=== PATIENT | male | born 1975 | race Asian ===

== ENCOUNTER → 2018-04-26 09:47 | Outpatient (CLI) | payer OTHER, SELFPAY ==
[2018-04-26 10:27] LABS: Add Manual Diff / Slide Review NO; Basophils Percent Auto 0.5 % (0-2); Eosinophils Percent Auto 5.3 % (2-4); Hematocrit 44.5 % (41-53); Hemoglobin 15.2 g/dL (13.5-17.5); Lymphocytes Percent Auto 34.5 % (25-40); Mean Corpuscular HGB Conc 34.1 % (30-36); Mean Corpuscular Volume 85.1 fL (80-100); Monocytes Percent Auto 5.4 % (3-14); Neutrophils Absolute Auto 3300 /uL (3000-5900); Neutrophils Percent Auto 54.3 % (50-75); Platelet Count 195 X10^3/uL (150-400); Red Blood Cell Count 5.22 X10^6/uL (4.5-5.9); Red Cell Distribution Width 13.6 % (11.6-14.8); White Blood Cell Count 6.2 X10^3/uL (4.5-11.0)
[2018-04-26 10:48] LABS: Alanine Aminotransferase 35 IU/L (21-72); Albumin 4.6 g/dL (3.5-5.0); Albumin Globulin Ratio 1.4 (1.0-2.8); Alkaline Phosphatase 71 U/L (38-126); Aspartate Aminotransferase 34 IU/L (17-59); BUN Creatinine Ratio 12.5 (6-22); Bilirubin Total 0.8 mg/dL (0.2-1.3); Blood Urea Nitrogen 15 mg/dL (9-20); Calcium 9.6 mg/dL (8.4-10.2); Carbon Dioxide 28 mmol/L (22-32); Chloride 102 mmol/L (98-107); Estimated Glomerular Filt Rate > 60.0 mL/min (>60); Globulin 3.2 g/dL (1.7-4.1); Glucose 126 mg/dL (70-100); HEMOLYSIS < 15 (0-50); Potassium 4.4 mmol/L (3.4-5.1); Sodium 141 mmol/L (137-145); Total Protein 7.8 g/dL (6.3-8.2)
[2018-04-26 10:49] LABS: Erythrocyte Sedimentation Rate 4 MM/HR (0-15)
[2018-04-26 10:50] LABS: C-Reactive Protein Quant < 0.5 mg/dL (<1.0)
[2018-04-26 11:20] LABS: Thyroid Stimulating Hormone 2.41 uIU/mL (0.47-4.68)
== END ==
PROVIDERS: PCP Family Medicine; Visit Provider Internal Medicine
DX: M25.532 Pain in left wrist (principal); M25.579 Pain in unspecified ankle and joints of unspecified foot; M79.646 Pain in unspecified finger(s)
CPT/HCPCS: 36415; 80053; 84443; 85025; 85651; 86140

== ENCOUNTER → 2018-04-26 10:00 | Outpatient (CLI) | payer OTHER, SELFPAY ==
--- NOTE | 2018-04-26 10:02 | DI.RAD.S_ITS ---
PROCEDURE: XR FINGER LT MIN 2V INDICATIONS: thumb pain Left TECHNIQUE: AP hand, 2 views of the left thumb acquired. COMPARISON: None. FINDINGS: Bones: No fractures or dislocations. No suspicious bony lesions. Joint spaces appear maintained. Soft tissues: No suspicious soft tissue calcifications. IMPRESSION: Normal thumb Dictated by: Dino Larson M.D. on 04/26/2018 at 10:31 Approved by: Dino Larson M.D. on 04/26/2018 at 10:32
--- NOTE | 2018-04-26 10:02 | DI.RAD.S_ITS ---
PROCEDURE: XR ANKLE LT MIN 3V INDICATIONS: PAIN IN ANKLE,WRIST,FINGERS TECHNIQUE: 3 views of the ankle were acquired. COMPARISON: None. FINDINGS: Bones: No fractures or dislocations. Ankle mortise is normally aligned. No suspicious bony lesions. Soft tissues: No tibiotalar joint effusion. Achilles tendon appears normal. IMPRESSION: Normal ankle Dictated by: Dino Larson M.D. on 04/26/2018 at 10:32 Approved by: Dino Larson M.D. on 04/26/2018 at 10:33
--- NOTE | 2018-04-26 10:02 | DI.RAD.S_ITS ---
PROCEDURE: XR WRIST LT MIN 3V INDICATIONS: left wrist pain TECHNIQUE: 3 views of the wrist were acquired. COMPARISON: None. FINDINGS: Bones: No fractures or dislocations. No suspicious bony lesions. Scaphoid view: Not requested Soft tissues: No suspicious soft tissue calcifications. IMPRESSION: Normal wrist Dictated by: Dino Larson M.D. on 04/26/2018 at 10:30 Approved by: Dino Larson M.D. on 04/26/2018 at 10:31
== END ==
PROVIDERS: PCP Family Medicine; Visit Provider Internal Medicine
DX: M25.532 Pain in left wrist (principal); M79.645 Pain in left finger(s); M25.572 Pain in left ankle and joints of left foot
CPT/HCPCS: 36415; 73110; 73140; 73610; 80053; 84443; 85025; 85651; 86140

== ENCOUNTER → 2018-06-07 09:37 | Outpatient (CLI) | payer OTHER, SELFPAY ==
[2018-06-07 10:31] LABS: Hemoglobin A1C% w Est Avg Glu 5.5 % (4.0-6.0)
[2018-06-07 10:37] LABS: Cholesterol 211 mg/dL (140-199); HDL Cholesterol 42 mg/dL (40-60); LDL Cholesterol Calculated 143 mg/dL (<100); Triglycerides 129 mg/dL (35-150)
[2018-06-07 11:09] LABS: Prostate Specific Antigen Scrn 0.787 ng/mL (0.1-4.0)
== END ==
PROVIDERS: Internal Medicine; Family Provider Family Medicine; PCP Family Medicine; Visit Provider Family Medicine
DX: E11.9 Type 2 diabetes mellitus without complications (principal); E78.5 Hyperlipidemia, unspecified; Z12.5 Encounter for screening for malignant neoplasm of prostate
CPT/HCPCS: 80061; 83036; G0103

== ENCOUNTER → 2018-09-03 09:26 | Outpatient (CLI) | payer OTHER, SELFPAY ==
[2018-09-03 10:44] LABS: Cholesterol 150 mg/dL (140-199); HDL Cholesterol 48 mg/dL (40-60); LDL Cholesterol Calculated 83 mg/dL (<100); Triglycerides 93 mg/dL (35-150)
== END ==
PROVIDERS: Family Provider Family Medicine; PCP Family Medicine; Visit Provider Family Medicine
DX: E78.5 Hyperlipidemia, unspecified (principal)
CPT/HCPCS: 80061

== ENCOUNTER → 2018-12-27 09:42 | Outpatient (CLI) | payer OTHER, SELFPAY ==
--- NOTE | 2018-12-27 09:43 | DI.RAD.S_ITS ---
PROCEDURE: XR FOOT RT MIN 3V INDICATIONS: foot pain TECHNIQUE: Pre-views of the foot were acquired. COMPARISON: None. FINDINGS: Bones: No fractures or dislocations. No suspicious bony lesions. Soft tissues: No tibiotalar joint effusion. Achilles tendon appears normal. IMPRESSION: No trauma found, source of foot pain is not seen. Dictated by: Dennis Fairbanks M.D. on 12/27/2018 at 10:22 Approved by: Dennis Fairbanks M.D. on 12/27/2018 at 10:23
== END ==
PROVIDERS: Family Provider Family Medicine; PCP Family Medicine; Visit Provider Family Medicine
DX: M79.671 Pain in right foot (principal)
CPT/HCPCS: 73630

== ENCOUNTER → 2019-02-28 10:32 | Outpatient (CLI) | payer OTHER, SELFPAY ==
--- NOTE | 2019-02-28 10:34 | DI.RAD.S_ITS ---
PROCEDURE: XR ELBOW RT MIN 3V INDICATIONS: pain TECHNIQUE: 3 views of the elbow were acquired. COMPARISON: None. FINDINGS: Bones: No fractures or dislocations. No suspicious bony lesions. There is calcified in the olecranon. Soft tissues: No elbow joint effusion. No suspicious soft tissue calcifications. IMPRESSION: 1. No fracture or dislocation. 2. Osteophyte in the olecranon may be secondary to enthesopathy. Dictated by: Cheri Torres M.D. on 02/28/2019 at 12:18 Approved by: Cheri Torres M.D. on 02/28/2019 at 12:20
[2019-02-28 12:02] LABS: Cholesterol 196 mg/dL (140-199); HDL Cholesterol 45 mg/dL (40-60); LDL Cholesterol Calculated 129 mg/dL (<100); Triglycerides 112 mg/dL (35-150)
== END ==
PROVIDERS: Family Provider Family Medicine; PCP Family Medicine; Visit Provider Family Medicine
DX: M77.11 Lateral epicondylitis, right elbow (principal); E78.5 Hyperlipidemia, unspecified; M25.721 Osteophyte, right elbow
CPT/HCPCS: 36415; 73080; 80061

== ENCOUNTER 2019-05-05 10:58 | Outpatient (RCR) | payer OTHER, SELFPAY ==
--- NOTE | 2019-05-05 15:46 | PT.OIE ---
Current Diagnoses Pain in right elbow (05/05/19) Achilles tendinitis, unspecified leg (05/05/19) Posterior tibial tendinitis, unspecified leg (05/05/19) Lateral epicondylitis, right elbow (05/05/19) Past Medical History (Last Updated 04/25/18 @ 08:46 by Cornelia Vail) Chicken pox (Resolved) Past Surgical History (Last Updated 04/25/18 @ 08:46 by Cornelia Vail) No history of previous surgery (Resolved 01/2015) Provider Visit Care Team Role Provider Type Olu Chiang MD Attending Provider Physician Primary Care Provider Specialty: Family Practice Address: [address] [place] [address], [employer] Email: [email or web address] Physical Therapy Initial Evaluation PT-OP-A Visit Information Start: 04/21/19 18:37 Freq: Status: Active Protocol: Document 05/05/19 11:15 AMB (Rec: 05/08/19 07:46 AMB [id number]) Out-Patient Physical Therapy Visit Information Visit Information Visit Type Initial Evaluation Visit Start Time 11:15 Visit Stop Time 12:03 Total Visit Minutes 48 Visit Number 1 PT-OP-B Current Condition Start: 04/21/19 18:37 Freq: Status: Active Protocol: Document 05/05/19 11:15 AMB (Rec: 05/08/19 12:06 AMB [email or web address]) Current Condition History of Current Condition Onset Date 6 months ago Current Complaints right elbow pain; R>L ankle pain History of Current Condition The patient denies any specific activity that brought on his elbow or ankle pain, although he first noticed the elbow pain when lifting groceries. He is most concerned about the elbow/ forearm pain. It was pretty bad when it first started, got a little better, then he went to [place] and was lifting luggage and that increased the pain. 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 The ankle pain started out as both ankles, but recently the right one has been worse. It is intermittent in nature. Walking makes it worse, and it tends to get worse in the evenings. 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 Prior Treatments and Tests X-ray of foot and elbow are negative (elbow X-ray does show an osteophyte in the olecranon). Prior Functional Status Baseline Function- ADL's Independent Baseline Function- Mobility Independent Current Functional Impairments (Reported) Functional Limitations- ADL's difficulty gripping/ lifting due to elbow pain Functional Limitations- Mobility/Gait limits some walking due to ankle pain Personal Factors Other Personal Factors That May Effect tendonitis at multiple joints Therapy/Recovery PT-OP-C Subjective Start: 04/21/19 18:37 Freq: Status: Active Protocol: Document 05/05/19 11:15 AMB (Rec: 05/08/19 12:06 AMB [email or web address]) Patient Questionnaires Lower Extremity Functional Scale LEFS Score 72 LEFS Impairment 1 to 19% Impaired (Score 63-79 ) Quick Dash- Upper Extremity Quick Dash UE Score 38 Quick Dash UE Impairment 20 to 39% Impaired (Score 20- 39) OP-PT Pain Assessment Location Right Ankle Pain Location Details lateral ankle into anterior and medial ankle R>L Intensity 4 Right Elbow Pain Location Details lateral epicondyle into forearm Intensity 5 Scale Used Numeric (1 - 10) PT-OP-J Posture/Palpation/Skin Start: 04/21/19 18:37 Freq: Status: Active Protocol: Document 05/05/19 11:15 AMB (Rec: 05/08/19 12:46 AMB [email or web address]) Palpation Assessment Location Two Palpation Location right posterior tibilalis tendon Palpation Findings Tenderness One Palpation Location lateral epicondyle Palpation Findings Tenderness PT-OP-L Special Tests Start: 04/21/19 18:37 Freq: Status: Active Protocol: Document 05/05/19 11:15 AMB (Rec: 05/08/19 12:06 AMB [email or web address]) Special Tests Elbow Special Tests Lateral Epicondylitis Flexed Test Results positive Lateral Epicondylitis Extended Test Results positive PT-OP-M Strength Start: 04/21/19 18:37 Freq: Status: Active Protocol: Document 05/05/19 11:15 AMB (Rec: 05/08/19 12:06 AMB [email or web address]) Wrist Strength Wrist Manual Muscle Testing Right Flexion (C7) 4+ Good+ Extension (C6) 4- Good- Ulnar Deviation 4+ Good+ Radial Deviation 4+ Good+ Left Flexion (C7) 5 Normal Extension (C6) 5 Normal Ulnar Deviation 5 Normal Radial Deviation 5 Normal Hand Quality Supervisor/Pinch Strength Hand Dominance Hand Dominance Right Hand Strength Right Quality Supervisor (lbs) 57 Left Quality Supervisor (lbs) 65 Ankle/Foot Strength Ankle and Foot Manual Muscle Testing Right Dorsiflexion (L4) 5 Normal Plantarflexion (S1) 5 Normal Inversion 4 Good Eversion (S1) 4- Good- Comments pain over lateral ankle with eversion Left Dorsiflexion (L4) 5 Normal Plantarflexion (S1) 5 Normal Inversion 4 Good Eversion (S1) 4 Good Comments pain over medial ankle with eversion inversion strength testing PT-OP-Q Treatments Start: 04/21/19 18:37 Freq: Status: Active Protocol: Document 05/05/19 11:15 AMB (Rec: 05/08/19 13:02 AMB [email or web address]) Therapeutic Exercises Sitting Exercises 2 Sitting Exercise Name ankle inversion and eversion Side bilateral Resistance #2 tband Reps/Minutes 1x10 ea 1 Sitting Exercise Name wrist extensor stretch Side right Reps/Minutes 30x2 PT-OP-T Assessment and Plan Start: 04/21/19 18:37 Freq: Status: Active Protocol: Document 05/05/19 11:15 AMB (Rec: 05/08/19 13:02 AMB [email or web address]) Physical Therapy Assessment Rehab Potential Rehabilitation Potential Good Evaluation Complexity Number of Personal Factors/Comorbidities 1-2 Number of Body Systems Impaired 3 Clinical Presentation at Evaluation Evolving Impairments Impairments Functional Activities Pain Soft Tissue Mobility Strength Goals Two Impairment ankle pain Short Term Goal (STG) Pete will increase his ankle strength in all planes to 5/5 without increasing his pain. 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 LTG Duration 8 weeks One Impairment UE strength Short Term Goal (STG) Pete will increase his average tissue technologist strength on the right to 70 pounds without an increase in elbow pain. STG Duration 4 weeks Applied Computer Science Professor Goal (LTG) Pete will increase his UE strength so he can lift a 10# grocery back from the floor to counter height without arm pain. LTG Duration 8 weeks Assessment Summary Assessment Pete attends physical therapy with symptoms consistent with right lateral epicondylitis and bilateral ankle pain worse on the right that presented at evaluation as having a component of posterior tibialis weakness and pain. 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 He will benefit from further education in avoiding repetitive strain to decrease his inflammatory response and then appropriate strengthening to avoid further flare ups. Physical Therapy Plan Frequency and Duration Frequency of Treatment 2x/Week Duration of Treatment 8 weeks Plan of Care Start Date 05/05/19 Plan of Care End Date 06/30/19 Therapeutic Interventions Therapeutic Interventions Aquatic Therapy Gait Training Joint Mobilizations Manual Therapy Neuromuscular Re-education Self-Care/Home Management Therapeutic Activities Therapeutic Exercises Modalities Cold Pack/Ice Massage Electric Stimulation Iontophoresis Ultrasound Other Therapeutic Interventions Iontophoresis with dexamethasone Next Visit Focus/Plan Next Note Type Treatment Note Next Visit Plan Progress HEP as tolerated, modalities to reduce inflammatory response, education in ergonomics of workstation
--- NOTE | 2019-05-05 15:49 | PT.OPPOC ---
Current Diagnoses Pain in right elbow (05/05/19) Achilles tendinitis, unspecified leg (05/05/19) Posterior tibial tendinitis, unspecified leg (05/05/19) Lateral epicondylitis, right elbow (05/05/19) Provider Visit Care Team Role Provider Type Olu Chiang MD Attending Provider Physician Primary Care Provider Specialty: Family Practice Address: [address] [place] [address], [facility] Email: [email or web address] Plan Of Care PT-OP-T Assessment and Plan Start: 04/21/19 18:37 Freq: Status: Active Protocol: Document 05/05/19 11:15 AMB (Rec: 05/08/19 13:02 AMB [email or web address]) Physical Therapy Assessment Rehab Potential Rehabilitation Potential Good Evaluation Complexity Number of Personal Factors/Comorbidities 1-2 Number of Body Systems Impaired 3 Clinical Presentation at Evaluation Evolving Impairments Impairments Functional Activities Pain Soft Tissue Mobility Strength Goals Two Impairment ankle pain Short Term Goal (STG) Pete will increase his ankle strength in all planes to 5/5 without increasing his pain. 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 LTG Duration 8 weeks One Impairment UE strength Short Term Goal (STG) Pete will increase his average carding supervisor strength on the right to 70 pounds without an increase in elbow pain. STG Duration 4 weeks Longterm Goal (LTG) Pete will increase his UE strength so he can lift a 10# grocery back from the floor to counter height without arm pain. LTG Duration 8 weeks Assessment Summary Assessment Pete attends physical therapy with symptoms consistent with right lateral epicondylitis and bilateral ankle pain worse on the right that presented at evaluation as having a component of posterior tibialis weakness and pain. 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 He will benefit from further education in avoiding repetetive strain to decrease his inflammatory response and then appropriate strengthening to avoid further flare ups. Physical Therapy Plan Frequency and Duration Frequency of Treatment 2x/Week Duration of Treatment 8 weeks Plan of Care Start Date 05/05/19 Plan of Care End Date 06/30/19 Therapeutic Interventions Therapeutic Interventions Aquatic Therapy Gait Training Joint Mobilizations Manual Therapy Neuromuscular Re-education Self-Care/Home Management Therapeutic Activities Therapeutic Exercises Modalities Cold Pack/Ice Massage Electric Stimulation Iontophoresis Ultrasound Other Therapeutic Interventions Iontophoresis with dexamethasone Next Visit Focus/Plan Next Note Type Treatment Note Next Visit Plan Progress HEP as tolerated, modalities to reduce inflammatory response, education in ergonomics of workstation Plan of Care Dates Plan of Care Start Date 05/05/19 Plan of Care End Date 06/30/19 Please Sign and Return: I have reviewed this Plan of Care and certify that the skilled therapy services above are required to meet the patient?s needs. Physician Signature Date Printed Name and Credentials Clinical Instructor Signature Printed Name and Credentials
--- NOTE | 2019-07-21 09:15 | PT.OPDS ---
Current Diagnoses Pain in right elbow (05/05/19) Achilles tendinitis, unspecified leg (05/05/19) Posterior tibial tendinitis, unspecified leg (05/05/19) Lateral epicondylitis, right elbow (05/05/19) Visit Care Team Role Provider Type Olu Chiang MD Attending Provider Physician Primary Care Provider Specialty: [facility] Address: [address] [place] [address], [facility] Email: [email or web address] Visit Number Visit Number 1 Discharge Summary PT-OP-B Current Condition Start: 04/21/19 18:37 Freq: Status: Active Protocol: Document 05/05/19 11:15 AMB (Rec: 05/08/19 12:06 AMB [email or web address]) Current Condition History of Current Condition Onset Date 6 months ago Current Complaints right elbow pain; R>L ankle pain History of Current Condition The patient denies any specific activity that brought on his elbow or ankle pain, although he first noticed the elbow pain when lifting groceries. He is most concerned about the elbow/ forearm pain. It was pretty bad when it first started, got a little better, then he went to [place] and was lifting luggage and that increased the pain. 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 The ankle pain started out as both ankles, but recently the right one has been worse. It is intermittent in nature. Walking makes it worse, and it tends to get worse in the evenings. 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 Prior Treatments and Tests X-ray of foot and elbow are negative (elbow X-ray does show an osteophyte in the olecranon). Prior Functional Status Baseline Function- ADL's Independent Baseline Function- Mobility Independent Current Functional Impairments (Reported) Functional Limitations- ADL's difficulty gripping/ lifting due to elbow pain Functional Limitations- Mobility/Gait limits some walking due to ankle pain Personal Factors Other Personal Factors That May Effect tendonitis at multiple joints Therapy/Recovery PT-OP-C Subjective Start: 04/21/19 18:37 Freq: Status: Active Protocol: Document 05/05/19 11:15 AMB (Rec: 05/08/19 12:06 AMB [email or web address]) Patient Questionnaires Lower Extremity Functional Scale LEFS Score 72 LEFS Impairment 1 to 19% Impaired (Score 63-79 ) Quick Dash- Upper Extremity Quick Dash UE Score 38 Quick Dash UE Impairment 20 to 39% Impaired (Score 20- 39) OP-PT Pain Assessment Location Right Ankle Pain Location Details lateral ankle into anterior and medial ankle R>L Intensity 4 Right Elbow Pain Location Details lateral epiocondyle into forearm Intensity 5 Scale Used Numeric (1 - 10) PT-OP-J Posture/Palpation/Skin Start: 04/21/19 18:37 Freq: Status: Active Protocol: Document 05/05/19 11:15 AMB (Rec: 05/08/19 12:46 AMB [email or web address]) Palpation Assessment Location Two Palpation Location right posterior tibilalis tendon Palpation Findings Tenderness One Palpation Location lateral epicondyle Palpation Findings Tenderness PT-OP-L Special Tests Start: 04/21/19 18:37 Freq: Status: Active Protocol: Document 05/05/19 11:15 AMB (Rec: 05/08/19 12:06 AMB [email or web address]) Special Tests Elbow Special Tests Lateral Epicondylitis Flexed Test Results positive Lateral Epicondylitis Extended Test Results positive PT-OP-M Strength Start: 04/21/19 18:37 Freq: Status: Active Protocol: Document 05/05/19 11:15 AMB (Rec: 05/08/19 12:06 AMB [email or web address]) Wrist Strength Wrist Manual Muscle Testing Right Flexion (C7) 4+ Good+ Extension (C6) 4- Good- Ulnar Deviation 4+ Good+ Radial Deviation 4+ Good+ Left Flexion (C7) 5 Normal Extension (C6) 5 Normal Ulnar Deviation 5 Normal Radial Deviation 5 Normal Hand Certified Composites Technician/Pinch Strength Hand Dominance Hand Dominance Right Hand Strength Right Certified Composites Technician (lbs) 57 Left Certified Composites Technician (lbs) 65 Ankle/Foot Strength Ankle and Foot Manual Muscle Testing Right Dorsiflexion (L4) 5 Normal Plantarflexion (S1) 5 Normal Inversion 4 Good Eversion (S1) 4- Good- Comments pain over lateral ankle with eversion Left Dorsiflexion (L4) 5 Normal Plantarflexion (S1) 5 Normal Inversion 4 Good Eversion (S1) 4 Good Comments pain over medial ankle with eversion inversion strength testing PT-OP-T Assessment and Plan Start: 04/21/19 18:37 Freq: Status: Active Protocol: Document 07/21/19 09:14 AMB (Rec: 07/21/19 09:15 AMB [email or web address]) Physical Therapy Assessment Assessment Summary Assessment Macho canceled his follow up appointments and never called back to reschedule. He was not seen after his initial evaluation, therefore he is discharged at this time. Physical Therapy Plan Discharge Physical Therapy Discharge Reasons No Longer Attending PT
== END 2019-07-27 12:48 ==
LOC: PHYS 10:58
PROVIDERS: PCP Family Medicine; Visit Provider Family Medicine
DX: M25.521 Pain in right elbow (principal); M76.60 Achilles tendinitis, unspecified leg; M77.11 Lateral epicondylitis, right elbow; M76.829 Posterior tibial tendinitis, unspecified leg
CPT/HCPCS: 97162

== ENCOUNTER → 2019-07-07 12:45 | Outpatient (CLI) | payer OTHER, SELFPAY ==
--- NOTE | 2019-07-07 12:47 | DI.MRI.S_ITS ---
PROCEDURE: MR ANKLE LT WO CON INDICATIONS: unstable ankle TECHNIQUE: Noncontrast sagittal T1 spin echo and T2 fast spin echo with fat saturation, axial proton density fast spin echo and T2 fast spin echo with fat saturation, coronal T1 spin echo and T2 fast spin echo with fat saturation through the ankle/hindfoot. COMPARISON: [facility], MR, MR ANKLE RT WO CON, 07/07/2019, 13:01. FINDINGS: Image quality: Mildly motion degraded Bones and joints: No bone marrow contusions or fractures. Ununited accessory navicular. No hindfoot coalitions. No osteochondral injuries of the talar dome. No pathologic joint effusions. Medial structures: The posterior tibialis, flexor digitorum longus, and flexor hallucis longus tendons are intact. Minimal fluid surrounding the posterior tibialis tendon raise the possibility of low-grade tenosynovitis. The posterior tibial neurovascular bundle appears normal within the tarsal tunnel, without extrinsic mass effect. The deep layer (anterior and posterior tibiotalar ligaments) and superficial layer (tibionavicular, tibiospring, and tibiocalcaneal ligaments) of the deltoid ligament appear normal. The spring ligament components (superomedial calcaneonavicular, medioplantar oblique calcaneonavicular, and inferoplantar longitudinal ligaments) are intact. Lateral structures: The anterior talofibular, calcaneofibular, and posterior talofibular ligaments appear intact, although there is mild T2 hyperintense appearance of the posterior talofibular ligament. More superiorly, the anterior and posterior tibiofibular ligaments appear intact, as is the intermalleolar ligament. The tibiofibular syndesmosis is normal in width at 2 mm or less. The peroneus longus and brevis tendons demonstrate normal location and morphology. Adjacent bony peroneal tubercle and retrotrochlear prominence are normal in size. The sinus tarsi demonstrates normal fatty signal, without edema, fibrosis, or cyst formation. Visualized sinus tarsi components (cervical ligament, interosseous talocalcaneal ligament, roots of the inferior extensor retinaculum) appear normal. The calcaneonavicular and calcaneocuboid components of the bifurcate ligament appear intact. The dorsal calcaneocuboid ligament appears intact. Anterior structures: The tibialis anterior, extensor hallucis longus, and extensor digitorum longus tendons appear intact. The dorsal talonavicular ligament appears intact. Posterior and plantar structures: Achilles tendon is intact. Medial and lateral bands of the plantar fascia are of normal thickness. No abductor digiti quinti muscle atrophy to suggest De La Cruz neuropathy. IMPRESSION: Minimal posterior tibialis tenosynovitis of unclear clinical significance. Questionable low-grade sprain of the posterior talofibular ligament. Elsewhere, no internal derangement. Dictated by: Jaycob Soares M.D. on 07/07/2019 at 16:14 Approved by: Jaycob Soares M.D. on 07/07/2019 at 16:23
--- NOTE | 2019-07-07 12:47 | DI.MRI.S_ITS ---
PROCEDURE: MR ELBOW RT WO CON INDICATIONS: lateral epicondyle TECHNIQUE: Noncontrast coronal proton density fast spin echo and T2 fast spin echo with fat saturation, axial and sagittal T1 spin echo and T2 fast spin echo with fat saturation through the elbow. COMPARISON: None. FINDINGS: Image quality: Severely motion degraded on multiple attempts. Lateral structures: The lateral ulnar collateral ligament and radial collateral ligament both appear intact. The overlying common extensor tendon is not well evaluated due to motion artifact however the coronal pulse sequence, there appears to be some thickening and T2 hyperintensity. Medial structures: The ulnar collateral ligament appears intact. The overlying common flexor tendon is not well-visualized although appears grossly intact. The ulnar nerve appears normal in size and signal within the cubital tunnel. Anterior structures: The biceps and brachialis tendons both appear intact as they insert onto the proximal radius and ulna, respectively. No bicipitoradial bursal fluid. The median and radial neurovascular bundles appear normal; no focal muscle atrophy to suggest nerve impingement. Posterior structures: The conjoint triceps tendon from the long and lateral heads appears intact. The medial head of the triceps tendon also appears normal, with direct muscle insertion onto the olecranon. No olecranon bursal fluid. Bone and cartilage: No bone marrow contusions or fractures. No osteochondral injuries. IMPRESSION: Severely motion degraded examination however on some pulse sequences, there appears to be changes suggestive of lateral epicondylitis syndrome. Please correlate clinically. Dictated by: Jaycob Soares M.D. on 07/07/2019 at 16:58 Approved by: Jaycob Soares M.D. on 07/07/2019 at 17:04
--- NOTE | 2019-07-07 12:47 | DI.MRI.S_ITS ---
PROCEDURE: MR ANKLE RT WO CON INDICATIONS: unstable ankle TECHNIQUE: Noncontrast sagittal T1 spin echo and T2 fast spin echo with fat saturation, axial proton density fast spin echo and T2 fast spin echo with fat saturation, coronal T1 spin echo and T2 fast spin echo with fat saturation through the ankle/hindfoot. COMPARISON: None. FINDINGS: Image quality: Degraded by motion artifact. Bones and joints: No bone marrow contusions or fractures. Incidental unfused accessory navicular. No hindfoot coalitions. No osteochondral injuries of the talar dome. No pathologic joint effusions. Medial structures: The posterior tibialis, flexor digitorum longus, and flexor hallucis longus tendons are intact. The posterior tibial neurovascular bundle appears normal within the tarsal tunnel, without extrinsic mass effect. The deep layer (anterior and posterior tibiotalar ligaments) and superficial layer (tibionavicular, tibiospring, and tibiocalcaneal ligaments) of the deltoid ligament appear normal. The spring ligament components (superomedial calcaneonavicular, medioplantar oblique calcaneonavicular, and inferoplantar longitudinal ligaments) are intact. Lateral structures: The anterior talofibular, calcaneofibular, and posterior talofibular ligaments appear intact. More superiorly, the anterior and posterior tibiofibular ligaments appear intact, as is the intermalleolar ligament. The tibiofibular syndesmosis is normal in width at 2 mm or less. The peroneus longus and brevis tendons demonstrate normal location and morphology. Adjacent bony peroneal tubercle and retrotrochlear prominence are normal in size. The sinus tarsi demonstrates normal fatty signal, without edema, fibrosis, or cyst formation. Visualized sinus tarsi components (cervical ligament, interosseous talocalcaneal ligament, roots of the inferior extensor retinaculum) appear normal. The calcaneonavicular and calcaneocuboid components of the bifurcate ligament appear intact. The dorsal calcaneocuboid ligament appears intact. Anterior structures: The tibialis anterior, extensor hallucis longus, and extensor digitorum longus tendons appear intact. The dorsal talonavicular ligament appears intact. Posterior and plantar structures: Achilles tendon is intact. Mild retro-calcaneal bursal fluid. Medial and lateral bands of the plantar fascia are of normal thickness. No abductor digiti quinti muscle atrophy to suggest De La Cruz neuropathy. IMPRESSION: Mild posterior tibialis tenosynovitis. Mild retrocalcaneal bursal fluid. Elsewhere, no internal derangement Dictated by: Jaycob Soares M.D. on 07/07/2019 at 14:39 Approved by: Jaycob Soares M.D. on 07/07/2019 at 14:45
== END ==
PROVIDERS: PCP Family Medicine; Visit Provider Family Medicine
DX: M25.372 Other instability, left ankle (principal); M25.371 Other instability, right ankle; M65.871 Other synovitis and tenosynovitis, right ankle and foot; M77.11 Lateral epicondylitis, right elbow
CPT/HCPCS: 73221; 73721

== ENCOUNTER → 2020-04-12 12:31 | Outpatient (CLI) | payer OTHER, SELFPAY ==
--- NOTE | 2020-04-12 12:35 | DI.RAD.S_ITS ---
PROCEDURE: XR KNEE RT 3V INDICATIONS: Pain TECHNIQUE: 3 views of the knee were acquired. COMPARISON: None. FINDINGS: Bones: No fractures or dislocations. No suspicious bony lesions. Soft tissues: No joint effusion. No suspicious soft tissue calcifications. IMPRESSION: No trauma found. Minimal thinning of the joint interspaces on the frontal view at the medial and lateral compartments. Slight osteoarthritis is suspected. Dictated by: Dennis Fairbanks M.D. on 04/12/2020 at 14:19 Approved by: Dennis Fairbanks M.D. on 04/12/2020 at 14:20
--- NOTE | 2020-04-12 12:35 | DI.RAD.S_ITS ---
PROCEDURE: XR KNEE LT 3V INDICATIONS: Pain TECHNIQUE: 3 views of the knee were acquired. COMPARISON: None. FINDINGS: Bones: No fractures or dislocations. No suspicious bony lesions. Soft tissues: No joint effusion. No suspicious soft tissue calcifications. IMPRESSION: Minimal if any thinning of the joint interspaces at the medial and lateral compartments on the frontal view. A definite source of knee pain is not found. Dictated by: Dennis Fairbanks M.D. on 04/12/2020 at 14:20 Approved by: Dennis Fairbanks M.D. on 04/12/2020 at 14:21
[2020-04-12 14:24] LABS: Add Manual Diff / Slide Review NO; Basophils Absolute Auto 0 /uL (0-100); Basophils Percent Auto 0.6 % (0-2); Eosinophils Absolute Auto 300 /uL (0-450); Eosinophils Percent Auto 4.7 % (2-4); Hematocrit 44.8 % (41-53); Lymphocytes Absolute Auto 2200 /uL (1100-4500); Lymphocytes Percent Auto 32.4 % (25-40); Mean Corpuscular HGB Conc 33.5 % (30-36); Mean Corpuscular Hemoglobin 28.6 PG (26-34); Mean Corpuscular Volume 85.6 fL (80-100); Monocytes Absolute Auto 400 /uL (0-900); Monocytes Percent Auto 6.4 % (3-14); Neutrophils Absolute Auto 3800 /uL (1500-7000); Neutrophils Percent Auto 55.9 % (50-75); Platelet Count 203 X10^3/uL (150-400); Red Blood Cell Count 5.24 X10^6/uL (4.5-5.9); Red Cell Distribution Width 12.8 % (11.6-14.8); White Blood Cell Count 6.8 X10^3/uL (4.5-11.0)
[2020-04-12 14:36] LABS: Alanine Aminotransferase 27 IU/L (<50); Albumin Globulin Ratio 1.7 (1.0-2.8); Alkaline Phosphatase 71 U/L (38-126); Aspartate Aminotransferase 36 IU/L (17-59); BUN Creatinine Ratio 10.4 (6-22); Bilirubin Total 0.5 mg/dL (0.2-1.3); Blood Urea Nitrogen 11 mg/dL (9-20); Calcium 10.2 mg/dL (8.4-10.2); Carbon Dioxide 29 mmol/L (22-32); Chloride 103 mmol/L (98-107); Cholesterol 206 mg/dL (140-199); Estimated Glomerular Filt Rate > 60.0 mL/min (>60); Glucose 91 mg/dL (70-100); HDL Cholesterol 47 mg/dL (40-60); HEMOLYSIS < 15 (0-50); LDL Cholesterol Calculated 125 mg/dL (<100); Potassium 4.8 mmol/L (3.4-5.1); Sodium 139 mmol/L (137-145); Triglycerides 171 mg/dL (35-150)
[2020-04-12 15:05] LABS: Prostate Specific Antigen Scrn 0.766 ng/mL (0.1-4.0)
== END ==
PROVIDERS: PCP Family Medicine; Referring Provider Family Medicine; Visit Provider Family Medicine
DX: M22.2X1 Patellofemoral disorders, right knee (principal); M22.2X2 Patellofemoral disorders, left knee; E78.5 Hyperlipidemia, unspecified
CPT/HCPCS: 36415; 73562; 80053; 80061; 85025; G0103

== ENCOUNTER 2020-05-22 17:06 | Emergency (ER) | payer OTHER, SELFPAY ==
[2020-05-22] VITALS (11 sets, daily range): BP systolic 113–145; BP diastolic 64–86; PULSE 57–64; RESP 15–20; O2SAT 99–100
[2020-05-22 17:41] LABS: Prothrombin Time 11.5 SECONDS (10.1-12.7)
--- NOTE | 2020-05-22 17:43 | DI.RAD.S_ITS ---
PROCEDURE: XR CHEST 2V INDICATIONS: knot in chest TECHNIQUE: 2 views of the chest were acquired. COMPARISON: None. FINDINGS: Surgical changes and devices: None. Lungs and pleura: Lungs are clear. No pleural effusions or pneumothorax. Mediastinum: Mediastinal contours are normal. Heart size is normal. Bones and chest wall: No suspicious bony abnormalities. Soft tissues appear unremarkable. IMPRESSION: No acute cardiopulmonary findings. Dictated by: Marissa Obrien M.D. on 05/22/2020 at 17:55 Approved by: Marissa Obrien M.D. on 05/22/2020 at 17:55
[2020-05-22 17:44] LABS: PTT Partial Thromboplastin Tim 36 SECONDS (26.4-36.2)
[2020-05-22 17:46] LABS: Alanine Aminotransferase 43 IU/L (<50); Albumin 4.6 g/dL (3.5-5.0); Albumin Globulin Ratio 1.5 (1.0-2.8); Alkaline Phosphatase 77 U/L (38-126); Aspartate Aminotransferase 37 IU/L (17-59); BUN Creatinine Ratio 13.3 (6-22); Bilirubin Total 0.6 mg/dL (0.2-1.3); Blood Urea Nitrogen 14 mg/dL (9-20); Calcium 9.5 mg/dL (8.4-10.2); Carbon Dioxide 21 mmol/L (22-32); Chloride 106 mmol/L (98-107); Creatine Kinase 190 U/L (55-170); Estimated Glomerular Filt Rate > 60.0 mL/min (>60); Globulin 3.1 g/dL (1.7-4.1); Glucose 94 mg/dL (70-100); HEMOLYSIS 17 (0-50); Lipase 173 U/L (23-300); Potassium 4.2 mmol/L (3.4-5.1); Sodium 137 mmol/L (137-145); Total Protein 7.7 g/dL (6.3-8.2)
[2020-05-22 17:48] LABS: Add Manual Diff / Slide Review NO; Basophils Absolute Auto 0 /uL (0-100); Basophils Percent Auto 0.6 % (0-2); Eosinophils Absolute Auto 300 /uL (0-450); Eosinophils Percent Auto 3.7 % (2-4); Hematocrit 42.7 % (41-53); Hemoglobin 14.7 g/dL (13.5-17.5); Lymphocytes Absolute Auto 2400 /uL (1100-4500); Lymphocytes Percent Auto 31.1 % (25-40); Mean Corpuscular HGB Conc 34.4 % (30-36); Mean Corpuscular Hemoglobin 29.1 PG (26-34); Mean Corpuscular Volume 84.6 fL (80-100); Monocytes Absolute Auto 500 /uL (0-900); Monocytes Percent Auto 6.5 % (3-14); Neutrophils Absolute Auto 4500 /uL (1500-7000); Neutrophils Percent Auto 58.1 % (50-75); Platelet Count 192 X10^3/uL (150-400); Red Blood Cell Count 5.04 X10^6/uL (4.5-5.9); Red Cell Distribution Width 12.8 % (11.6-14.8); White Blood Cell Count 7.8 X10^3/uL (4.5-11.0)
[2020-05-22 17:57] LABS: Troponin I < 0.012 ng/mL (0.01-0.034)
[2020-05-22 18:01] LABS: CKMB % Relative Index 0.3 % (1.5-5.0)
--- NOTE | 2020-05-22 18:12 | ED_ITS ---
HPI - Chest Pain General Chief Complaint: Chest Pain Stated Complaint: states painful knot in middle of chest Time Seen by Provider: 05/22/20 18:09 Source: patient Mode of arrival: Ambulatory Limitations: no limitations History of Present Illness HPI narrative: 44M nonsmoker with history of elevated cholesterol presents with family and the chief complaint of episodes of epigastric pain since yesterday. There is no obvious pattern. He states it radiates to his back. He denies dizziness, weakness, lightheadedness, fever, chills, recent travel. He denies exertional symptoms. He states he feels a lump in his epigastrum which is what has him concerned. He denies injury or obvious history of the same. He has been under stress and is purchasing a new hotel in [place], [place] soon. He denies long distance travel, change in diet or exercise. He denies fever, runny nose, sneezing, sore throat, or cough. Related Data Previous Rx's Medication Instructions Recorded atorvastatin 20 mg tablet See Rx Instructions .ROUTE 04/16/20 .COMPLEX #90 tab meloxicam 15 mg tablet 15 mg PO DAILY #30 tab 04/17/20 pantoprazole [Protonix] 40 mg PO DAILY #30 tab 05/22/20 Allergies Allergy/AdvReac Type Severity Reaction Status Date / Time No Known Drug Allergies Allergy Unverified 02/28/19 10:12 Review of Systems Constitutional Constitutional: Denies chills, Denies fatigue, Denies fever(s), Denies frequent falls, Denies lethargy and Denies weakness Eyes Eyes: Denies change in vision, Denies eye discharge, Denies irritation and Denies loss of vision ENT Ears, Nose, Mouth, and Throat: Denies change in voice, Denies dizziness, Denies neck pain, Denies sore throat and Denies throat swelling Cardiovascular Cardiovascular: Denies chest pain, Denies irregular heart rhythm, Denies lightheadedness, Denies palpitations, Denies dyspnea, Denies dyspnea on exertion and Denies orthopnea Respiratory Respiratory: Denies cough, Denies dyspnea, Denies dyspnea on exertion and Denies wheezing Gastrointestinal Gastrointestinal: Reports abdominal pain, Denies change in bowel habits, Denies diarrhea, Denies nausea and Denies vomiting Musculoskeletal Musculoskeletal: Denies neck pain and Denies numbness Integumentary/Breasts Skin/Breast: Denies pruritus, Denies erythema, Denies rash and Denies wounds Neurologic Neurologic: Denies behavioral changes, Denies confusion, Denies dizziness, Denies frequent falls, Denies loss of vision, Denies numbness and Denies weakness Psychiatric Psychiatric: Denies anxiety, Denies behavioral changes, Denies confusion, Denies depression, Denies homicidal ideation and Denies suicidal ideation Endocrine Endocrine: Denies fatigue, Denies flushing and Denies palpitations Hematologic/Lymphatic Hematologic/Lymphatic: Denies easy bruising Allergic/Immunologic Allergic/Immunologic: Denies urticaria, Denies throat swelling and Denies wheezing Patient History Medical History Chicken pox (Resolved) Surgical History No history of previous surgery (Resolved 01/2015) Family History Father Age: 82 Hypertension Diabetes mellitus Grandmother No problems noted. Grandfather No problems noted. Mother Epilepsy Grandfather No problems noted. Grandmother No problems noted. Brother No problems noted. Social History Smoking Status: Never smoker Smoking Status: Never smoker alcohol intake frequency: holidays/special occasions only Substance Use Type: marijuana Exam Narrative Exam Narrative: GENERAL: [44] year old patient appears stated age. Well- nourished, well-developed patient, in mild distress. HEAD: Atraumatic. Normocephalic. EYES: Pupils equal round and reactive. Extraocular motions intact. No scleral icterus. No injection or drainage. ENT: Nose without bleeding, purulent drainage. Throat without erythema, tonsillar hypertrophy or exudate. Airway patent. NECK: Trachea midline. Non tender CARDIOVASCULAR: Regular rate and rhythm without murmurs, gallops, or rubs. RESPIRATORY: Clear to auscultation. Breath sounds equal bilaterally. No wheezes, rales, or rhonchi. GASTROINTESTINAL: Abdomen soft, mild tenderness in epigastrum and RUQ, nondistended. Concerning lump is patient xiphoid process, no pain on palpation, nor edema/erythema EXTREMITIES: No edema or joint tenderness. BACK: Nontender without deformity or crepitance. No flank tenderness. NEURO: AOx3. SKIN: No rash or erythema of visible areas Initial Vital Signs Initial Vital Signs: Vital Signs Pulse Rate 60 05/22/20 17:15 Respiratory Rate 18 05/22/20 17:15 Blood Pressure 144/84 H 05/22/20 17:15 Pulse Oximetry 100 05/22/20 17:15 Course Course Course Narrative: significant improvement with GI cocktail / protonix. Orders Ordered: ED Orders 05/22/20 17:13 EKG-12 Lead Stat 05/22/20 17:25 Complete Blood Count AUTO DIFF Stat Comprehensive Metabolic Panel Stat Lipase Stat Partial Thromboplastin Time Stat Prothrombin Time INR Stat Troponin & CK Cardiac Panel Stat 05/22/20 17:43 XR chest 2V Stat 05/22/20 18:28 US abdomen limited Stat Discontinued Medications Al Hydrox/Mg Hydrox/Simethicone 20 ml/ Lidocaine HCl 15 ml 0 ml PO NOW ONE Stop: 05/22/20 19:39 Last Admin: 05/22/20 19:51 Dose: 35 ml Documented by: LEONID Pantoprazole Sodium (Protonix) 40 mg IV NOW ONE Stop: 05/22/20 19:39 Last Admin: 05/22/20 19:52 Dose: 40 mg Documented by: LEONID Vital Signs Vital signs: Vital Signs - 8 hr 05/22/20 17:15 05/22/20 17:50 05/22/20 17:52 Pulse Rate 60 60 62 Respiratory Rate 18 Blood Pressure 144/84 H 132/86 Pulse Oximetry 100 100 99 05/22/20 18:00 05/22/20 18:30 05/22/20 19:00 Pulse Rate 62 64 57 L Respiratory Rate 16 19 18 Blood Pressure 118/76 127/83 113/64 Pulse Oximetry 100 99 100 05/22/20 19:30 05/22/20 19:31 05/22/20 20:00 Pulse Rate 61 60 Respiratory Rate 16 18 Blood Pressure 120/76 Pulse Oximetry 100 100 100 05/22/20 20:01 05/22/20 20:31 Pulse Rate 60 63 Respiratory Rate 15 20 Blood Pressure 138/81 145/86 H Pulse Oximetry 100 100 MDM - Chest Pain Lab Data Result diagrams: 05/22/20 17:25 05/22/20 17:25 Labs: Lab Results 09/11/0905/22/20 05/22/20 Range/Units 17:25 17:25 17:25 WBC 7.8 (4.5-11.0) X10^3/uL RBC 5.04 (4.5-5.9) X10^6/uL Hgb 14.7 (13.5-17.5) g/dL Hct 42.7 (41-53) % MCV 84.6 (80-100) fL MCH 29.1 (26-34) PG MCHC 34.4 (30-36) % RDW 12.8 (11.6-14.8) % Plt Count 192 (150-400) X10^3/uL Neut % (Auto) 58.1 (50-75) % Lymph % (Auto) 31.1 (25-40) % [place] % (Auto) 6.5 (3-14) % Eos % (Auto) 3.7 (2-4) % Baso % (Auto) 0.6 (0-2) % Neut # (Auto) 4500 (2972-9520) /uL Lymph # (Auto) 2400 (7961-7566) /uL [place] # (Auto) 500 (0-900) /uL Eos # (Auto) 300 (0-450) /uL Baso # (Auto) 0 (0-100) /uL PT 11.5 (10.1-12.7) SECONDS INR 1.0 (0.9-1.3) APTT 36 (26.4-36.2) SECONDS Sodium 137 (137-145) mmol/L Potassium 4.2 (3.4-5.1) mmol/L Chloride 106 (98-107) mmol/L Carbon Dioxide 21 L (22-32) mmol/L BUN 14 (9-20) mg/dL Creatinine 1.05 (0.66-1.25) mg/dL Estimated GFR > 60.0 (>60) mL/min BUN/Creatinine Ratio 13.3 (6-22) Glucose 94 (70-100) mg/dL Calcium 9.5 (8.4-10.2) mg/dL Total Bilirubin 0.6 (0.2-1.3) mg/dL AST 37 (17-59) IU/L ALT 43 (<50) IU/L Alkaline Phosphatase 77 (38-126) U/L Total Creatine Kinase 190 H (55-170) U/L CK-MB (CK-2) 0.50 (<2.37) ng/mL CK-MB (CK-2) Rel Index 0.3 L (1.5-5.0) % Troponin I < 0.012 (0.01-0.034) ng/mL Total Protein 7.7 (6.3-8.2) g/dL Albumin 4.6 (3.5-5.0) g/dL Globulin 3.1 (1.7-4.1) g/dL Albumin/Globulin Ratio 1.5 (1.0-2.8) Lipase 173 (23-300) U/L Imaging Data US - abdomen: Radiologist's Impression: MaldonadoPete [address] [address] Ultrasound Report Signed Patient: Pete Maldonado RMR#: [id number] : 1975Acct:[id number] Age/Sex: 44 / MDate of Service: 05/22/20 Loc: ED Accession Number: [id number] Procedure: US abdomen limited Ordering Provider: Robel Garcia D.O. PROCEDURE: US ABDOMEN LIMITED INDICATIONS: RUQ PAIN TECHNIQUE: Real-time scanning was performed of the abdominal and retroperitoneal organs, with image documentation. COMPARISON: None. FINDINGS: Liver: Liver is normal in size and homogeneous in echotexture. Gallbladder: The gallbladder wall measures 1.8 mm in diameter. No stones, sludge, pericholecystic fluid, or sonographic Hutchinson sign. Biliary ducts: Intrahepatic bile ducts are non-dilated. Extrahepatic bile duct caliber measures 5.2 mm. Normal is 6-7 mm or less in diameter, or 10 mm or less post-cholecystectomy. Pancreas: Visualized portions of the pancreas are sonographically normal. IMPRESSION: 1. No cholelithiasis or findings to suggest choledocholithiasis or acute cholecystitis. Dictated by: Marissa Obrien M.D. on 05/22/2020 at 19:13 Approved by: Marissa Obrien M.D. on 05/22/2020 at 19:13 Chest x-ray: Radiologist's Impression: [address] [address] XRay Report Signed Patient: Pete Maldonado RMR#: [id number] : 1975Acct:[id number] Age/Sex: 44 / MDate of Service: 05/22/20 Loc: ED Accession Number: [id number] Procedure: XR chest 2V Ordering Provider: Twyla Joyce D.O. PROCEDURE: XR CHEST 2V INDICATIONS: knot in chest TECHNIQUE: 2 views of the chest were acquired. COMPARISON: None. FINDINGS: Surgical changes and devices: None. Lungs and pleura: Lungs are clear. No pleural effusions or pneumothorax. Mediastinum: Mediastinal contours are normal. Heart size is normal. Bones and chest wall: No suspicious bony abnormalities. Soft tissues appear unremarkable. IMPRESSION: No acute cardiopulmonary findings. Dictated by: Marissa Obrien M.D. on 05/22/2020 at 17:55 Approved by: Marissa Obrien M.D. on 05/22/2020 at 17:55 [facility] Narrative Medical decision making narrative: Multiple etiologies for patient's symptoms considered including: [Multiple causes of chest pain considered including MA, PE, pneumothorax, pneumonia, aortic dissection, and pleurisy. Patient reports no radiation, no diaphoresis, no provocation with exertion, and no vomiting. Gallbladder and pancreatic disease considered but thought less likely given lack of findings on ultrasound or labs. Most likely consideration GERD, peptic ulcer disease given presentation, lack of lab findings and response to therapies. Discussion with patient to perform CT, however he refuses, stating he wants to see all the medications make him feel and will follow up closely, especially if anything worsens. Patient's symptoms improved over duration of stay with above-stated therapies. Findings and discharge diagnosis discussed with patient/family followed by verbalization of understanding Return precautions discussed with patient/family whom verbalize understanding. Discharge Plan Departure Patient Disposition: Home Clinical Impression: Abdominal pain, acute, epigastric Discharge Date/Time: 05/22/20 20:50 Instructions: DI for Abdominal Pain-Adult, DI for Epigastric Pain Activity Restrictions/Additional Instructions: *You have been diagnosed with [acute epigastric pain, no evidence of cardiac, pancreatitis, or gallbladder disease.] *What to do: *Take medications as directed. Avoid alcohol, nicotine, caffeine, spicy or acidic foods. *Follow up with your primary care provider in 2-3 days, call for an appointment. Let them know you were seen in the Emergency Department and that we ask that you be seen in follow up *Return to ER if you should have any new, worsening or concerning symptoms Prescriptions: New pantoprazole [Protonix] 40 mg tablet,delayed release (DR/EC) 40 mg PO DAILY Qty: 30 RF: 0 No Action atorvastatin 20 mg tablet See Rx Instructions .ROUTE .COMPLEX Qty: 90 RF: 1 meloxicam 15 mg tablet 15 mg PO DAILY Qty: 30 RF: 5 Referrals: Olu Chiang MD [Primary Care Provider] -
--- NOTE | 2020-05-22 18:28 | DI.US.S_ITS ---
PROCEDURE: US ABDOMEN LIMITED INDICATIONS: RUQ PAIN TECHNIQUE: Real-time scanning was performed of the abdominal and retroperitoneal organs, with image documentation. COMPARISON: None. FINDINGS: Liver: Liver is normal in size and homogeneous in echotexture. Gallbladder: The gallbladder wall measures 1.8 mm in diameter. No stones, sludge, pericholecystic fluid, or sonographic Hutchinson sign. Biliary ducts: Intrahepatic bile ducts are non-dilated. Extrahepatic bile duct caliber measures 5.2 mm. Normal is 6-7 mm or less in diameter, or 10 mm or less post-cholecystectomy. Pancreas: Visualized portions of the pancreas are sonographically normal. IMPRESSION: 1. No cholelithiasis or findings to suggest choledocholithiasis or acute cholecystitis. Dictated by: Marissa Obrien M.D. on 05/22/2020 at 19:13 Approved by: Marissa Obrien M.D. on 05/22/2020 at 19:13
[2020-05-22] MEDS: MAG HYDROX/ALUMINUM/SIMETH SUS 20 ML, LIDOCAINE VISCOUS 2% 15 ML PO (19:51)
[2020-05-22] MEDS: PANTOPRAZOLE 40 MG VIAL IV (19:52)
== END 2020-05-22 20:50 | disposition home or self-care (01) ==
PROVIDERS: Emergency Medicine; Emergency Provider Emergency Medicine; PCP Family Medicine
DX: R10.13 Epigastric pain (principal); R07.9 Chest pain, unspecified
CPT/HCPCS: 36415; 71046; 76705; 80053; 82550; 82553; 83690; 84484; 85025; 85610; 85730; 93005; 96374; 99284; C9113

== ENCOUNTER → 2021-01-07 10:02 | Outpatient (CLI) | payer OTHER, SELFPAY ==
--- NOTE | 2021-01-07 10:03 | DI.RAD.S_ITS ---
PROCEDURE: XR FINGER RT MIN 2V INDICATIONS: right thumb pain TECHNIQUE: AP hand, 2 views of the 1st finger(s) acquired. COMPARISON: None. FINDINGS: Bones: No fractures or dislocations. No suspicious bony lesions. Soft tissues: No suspicious soft tissue calcifications. 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 No trauma found. Dictated by: Dennis Fairbanks M.D. on 01/07/2021 at 12:38 Approved by: Dennis Fairbanks M.D. on 01/07/2021 at 12:38
[2021-01-07 11:22] LABS: Alanine Aminotransferase 24 IU/L (<50); Albumin 4.3 g/dL (3.5-5.0); Albumin Globulin Ratio 1.4 (1.0-2.8); Alkaline Phosphatase 73 U/L (38-126); Aspartate Aminotransferase 29 IU/L (17-59); BUN Creatinine Ratio 14.7 (6-22); Bilirubin Total 0.4 mg/dL (0.2-1.3); Blood Urea Nitrogen 14 mg/dL (9-20); Calcium 9.7 mg/dL (8.4-10.2); Carbon Dioxide 29 mmol/L (22-32); Chloride 105 mmol/L (98-107); Cholesterol 288 mg/dL (140-199); Estimated Glomerular Filt Rate > 60.0 mL/min (>60); Globulin 3.1 g/dL (1.7-4.1); Glucose 101 mg/dL (70-100); HDL Cholesterol 51 mg/dL (40-60); HEMOLYSIS < 15 (0-50); LDL Cholesterol Calculated 192 mg/dL (<100); Potassium 4.8 mmol/L (3.4-5.1); Sodium 140 mmol/L (137-145); Total Protein 7.4 g/dL (6.3-8.2); Triglycerides 224 mg/dL (35-150)
== END ==
PROVIDERS: PCP Registered Nurse; Referring Provider Registered Nurse; Visit Provider Registered Nurse
DX: M79.644 Pain in right finger(s) (principal); E78.2 Mixed hyperlipidemia
CPT/HCPCS: 36415; 73140; 80053; 80061

== ENCOUNTER → 2021-07-09 12:42 | Outpatient (CLI) | payer OTHER, SELFPAY ==
[2021-07-09 14:23] LABS: Alanine Aminotransferase 21 IU/L (<50); Albumin 4.3 g/dL (3.5-5.0); Albumin Globulin Ratio 1.7 (1.0-2.8); Alkaline Phosphatase 60 U/L (38-126); Aspartate Aminotransferase 25 IU/L (17-59); BUN Creatinine Ratio 10.5 (6-22); Bilirubin Total 0.3 mg/dL (0.2-1.3); Blood Urea Nitrogen 10 mg/dL (9-20); Calcium 9.4 mg/dL (8.4-10.2); Carbon Dioxide 23 mmol/L (22-32); Chloride 107 mmol/L (98-107); Cholesterol 149 mg/dL (140-199); Estimated Glomerular Filt Rate > 60.0 mL/min (>60); Globulin 2.6 g/dL (1.7-4.1); Glucose 93 mg/dL (70-100); HDL Cholesterol 47 mg/dL (40-60); HEMOLYSIS < 15 (0-50); LDL Cholesterol Calculated 71 mg/dL (<100); Potassium 4.2 mmol/L (3.4-5.1); Sodium 141 mmol/L (137-145); Total Protein 6.9 g/dL (6.3-8.2); Triglycerides 155 mg/dL (35-150)
== END ==
PROVIDERS: PCP Registered Nurse; Referring Provider Registered Nurse; Visit Provider Registered Nurse
DX: E78.5 Hyperlipidemia, unspecified (principal)
CPT/HCPCS: 36415; 80053; 80061

== ENCOUNTER → 2021-07-10 11:12 | Outpatient (CLI) | payer OTHER, SELFPAY ==
--- NOTE | 2021-07-10 11:13 | DI.US.S_ITS ---
PROCEDURE: US ABDOMEN LIMITED INDICATIONS: right inguinal pain TECHNIQUE: Real-time focused scanning was performed of the abdomen, with image documentation. COMPARISON: [facility], , US ABDOMEN LIMITED, 05/22/2020, 19:01. FINDINGS: Scanning is performed at the area of clinical concern involving the right inferior groin, lateral to the scrotum. At this site, there is a nonvascular superficial complex, hypoechoic focus that measures 11 x 5 x 3 mm. IMPRESSION: Superficial nonvascular focus seen. Differential diagnosis includes a lymph node or phlegmon. No drainable abscess can be seen at this time. Dictated by: Preet Smith M.D. on 07/10/2021 at 11:56 Approved by: Preet Smith M.D. on 07/10/2021 at 11:57
== END ==
PROVIDERS: PCP Registered Nurse; Referring Provider Registered Nurse; Visit Provider Registered Nurse
DX: R10.31 Right lower quadrant pain (principal)
CPT/HCPCS: 76705

== ENCOUNTER → 2022-07-08 10:16 | Outpatient (CLI) | payer OTHER, SELFPAY ==
[2022-07-08 11:26] LABS: Add Manual Diff / Slide Review NO; Basophils Absolute Auto 100 /uL (0-100); Basophils Percent Auto 0.8 % (0-2); Eosinophils Absolute Auto 500 /uL (0-450); Eosinophils Percent Auto 7.2 % (2-4); Hematocrit 43.6 % (41-53); Hemoglobin 14.5 g/dL (13.5-17.5); Lymphocytes Absolute Auto 2200 /uL (1100-4500); Lymphocytes Percent Auto 30.9 % (25-40); Mean Corpuscular HGB Conc 33.3 % (30-36); Mean Corpuscular Hemoglobin 29.1 PG (26-34); Mean Corpuscular Volume 87.3 fL (80-100); Monocytes Absolute Auto 500 /uL (0-900); Monocytes Percent Auto 6.6 % (3-14); Neutrophils Absolute Auto 3900 /uL (1500-7000); Neutrophils Percent Auto 54.5 % (50-75); Platelet Count 183 X10^3/uL (150-400); White Blood Cell Count 7.2 X10^3/uL (4.5-11.0)
[2022-07-08 12:36] LABS: Alanine Aminotransferase 31 IU/L (<50); Albumin 4.1 g/dL (3.5-5.0); Albumin Globulin Ratio 1.3 (1.0-2.8); Alkaline Phosphatase 73 U/L (38-126); Aspartate Aminotransferase 29 IU/L (17-59); BUN Creatinine Ratio 13.3 (6-22); Bilirubin Total 0.4 mg/dL (0.2-1.3); Blood Urea Nitrogen 13 mg/dL (9-20); Calcium 9.1 mg/dL (8.4-10.2); Carbon Dioxide 23 mmol/L (22-32); Chloride 107 mmol/L (98-107); Cholesterol 191 mg/dL (140-199); Estimated Glomerular Filt Rate > 60 mL/min (>60); Globulin 3.1 g/dL (1.7-4.1); Glucose 100 mg/dL (70-100); HDL Cholesterol 58 mg/dL (40-60); HEMOLYSIS < 15 (0-50); LDL Cholesterol Calculated 108 mg/dL (<100); Potassium 4.4 mmol/L (3.4-5.1); Sodium 140 mmol/L (137-145); Total Protein 7.2 g/dL (6.3-8.2); Triglycerides 124 mg/dL (35-150)
== END ==
PROVIDERS: PCP Family Medicine; Referring Provider Family Medicine; Visit Provider Family Medicine
DX: Z00.00 Encounter for general adult medical examination without abnormal findings (principal); E78.2 Mixed hyperlipidemia
CPT/HCPCS: 36415; 80053; 80061; 85025

== ENCOUNTER → 2022-08-25 10:19 | Outpatient (CLI) | payer OTHER, SELFPAY ==
[2022-08-25 11:00] LABS: Add Manual Diff / Slide Review NO; Basophils Absolute Auto 100 /uL (0-100); Basophils Percent Auto 0.7 % (0-2); Eosinophils Absolute Auto 600 /uL (0-450); Eosinophils Percent Auto 7.7 % (2-4); Hematocrit 43.7 % (41-53); Lymphocytes Absolute Auto 2300 /uL (1100-4500); Lymphocytes Percent Auto 31.6 % (25-40); Mean Corpuscular HGB Conc 34.4 % (30-36); Mean Corpuscular Hemoglobin 29.5 PG (26-34); Mean Corpuscular Volume 85.8 fL (80-100); Monocytes Absolute Auto 400 /uL (0-900); Monocytes Percent Auto 5.9 % (3-14); Neutrophils Absolute Auto 4000 /uL (1500-7000); Neutrophils Percent Auto 54.1 % (50-75); Platelet Count 173 X10^3/uL (150-400); Red Blood Cell Count 5.09 X10^6/uL (4.5-5.9); Red Cell Distribution Width 12.5 % (11.6-14.8); White Blood Cell Count 7.4 X10^3/uL (4.5-11.0)
[2022-08-25 11:46] LABS: Alanine Aminotransferase 28 IU/L (<50); Albumin 4.3 g/dL (3.5-5.0); Albumin Globulin Ratio 1.5 (1.0-2.8); Alkaline Phosphatase 76 U/L (38-126); Aspartate Aminotransferase 24 IU/L (17-59); BUN Creatinine Ratio 9.6 (6-22); Bilirubin Total 0.3 mg/dL (0.2-1.3); Blood Urea Nitrogen 10 mg/dL (9-20); Calcium 9.4 mg/dL (8.4-10.2); Carbon Dioxide 25 mmol/L (22-32); Chloride 106 mmol/L (98-107); Estimated Glomerular Filt Rate > 60 mL/min (>60); Globulin 2.9 g/dL (1.7-4.1); Glucose 103 mg/dL (70-100); HEMOLYSIS < 15 (0-50); Potassium 4.5 mmol/L (3.4-5.1); Sodium 139 mmol/L (137-145); Total Protein 7.2 g/dL (6.3-8.2)
== END ==
PROVIDERS: PCP Family Medicine; Referring Provider Dermatology; Visit Provider Dermatology
DX: L30.9 Dermatitis, unspecified (principal)
CPT/HCPCS: 36415; 80053; 85025

== ENCOUNTER → 2022-12-14 16:21 | Outpatient (CLI) | payer OTHER, SELFPAY | PROVIDERS: PCP Family Medicine; Visit Provider Nurse Practitioner Family | DX: J02.9 Acute pharyngitis, unspecified (principal) | CPT/HCPCS: 87070 ==

== ENCOUNTER 2023-02-05 06:42 | Day surgery (SDC) | payer OTHER, SELFPAY ==
--- NOTE | 2023-02-05 | PATH_ITS ---
[facility] Accession Number: [id number] No. of containers..01 Tissue . 01 Material submitted: . sigmoid colon - BIOPSY SMALL SIGMOID COLON . 01 Diagnosis: Sigmoid Colon, Biopsy: Colonic mucosa with no diagnostic abnormality. Negative for active, chronic, and microscopic colitis. Negative for dysplasia and malignancy. . MRV 02/09/2023 1708 Local . 01 Electronically signed: . Florida Cook MD, Pathologist NPI- [id number] . 01 Gross description: . BIOPSY SMALL SIGMOID COLON: Received in formalin are multiple fragment(s) of mendosa, soft tissue measuring 1.2 x 0.1 x 0.1 cm in aggregate submitted entirely in 1 cassette(s) /[facility] 02/08/2023 1139 Local . 01 Pathologist provided ICD-10: Z12.11 . 01 CPT . 559973 Specimen Comment: A courtesy copy of this report has been sent to [facility] Pathology Performed at: [address] [facility] [address] [place] [address], [place], [place] [id number] MD Jose Boss MD Phone: [phone]
[2023-02-05 07:07] VITALS: BP 114/79; PULSE 65; RESP 17; TEMP 36; O2SAT 98; BMI 25.0
[2023-02-05] MEDS: LACTATED RINGERS 1,000 ML 42 ML IV (07:19)
--- NOTE | 2023-02-05 07:44 | PM.HP.1 ---
History of Present Illness History of Present Illness Date Patient Seen: 02/05/23 Chief complaint: SDC Narrative: 47-year-old male presents today for screening colonoscopy. He has no family history of colon cancer. He has no symptoms of bleeding or changes in bowel habits that are concerning. He understands the recommendation for colon cancer screening and would like to proceed today he has no further questions the prep he said was terrible but it seems to have worked and he is having clear bowel movements now. [facility] Medical History (Updated 02/05/23 @ 07:45 by Kayla Ortega MD) Burning sensation of mouth Chicken pox Hyperlipidemia (03/05/15) Insomnia Lump Pain of right thumb Right inguinal pain Sore throat (viral) Upper extremity somatic dysfunction Surgical History No history of previous surgery (01/2015) Family History (Updated 07/14/22 @ 14:20 by Minh Moore DO) Father Hypertension Diabetes mellitus Grandmother No problems noted. Grandfather No problems noted. Mother Epilepsy Grandfather No problems noted. Grandmother No problems noted. Brother No problems noted. Social History household members: spouse Smoking Status: Never smoker alcohol intake: current Meds Home Medications and Allergies Home Medications Medication Instructions Recorded Confirmed Type atorvastatin 20 mg tablet 20 mg PO BEDTIME Hyperlipidemia 90 07/14/22 02/05/23 Rx days #90 tabs trazodone 50 mg tablet 50 mg PO BEDTIME PRN sleep #90 tabs 07/14/22 02/05/23 Rx sodium,potassium,mag sulfates 17.5 See Rx Instructions PO .COMPLEX 10/12/22 02/05/23 Rx gram-3.13 gram-1.6 gram oral soln #354 mL (Suprep Bowel Prep Kit) Allergies Allergy/AdvReac Type Severity Reaction Status Date / Time No Known Drug Allergies Allergy Verified 02/02/23 16:05 Exam Vital Signs (past 8 hours): - 02/05/23 07:07 Temperature 96.8 F L Pulse Rate 65 Respiratory Rate 17 Blood Pressure 114/79 Pulse Oximetry 98 Oxygen Delivery Method Room Air Oxygen Delivery Method Room Air Const General: cooperative, healthy appearing and comfortable Nutritional Appearance: average body habitus Orientation: oriented x3 HENMT Head: normal to inspection Eyes General: appearance normal, both eyes and all related structures Resp Effort & Inspection: normal respiratory effort and able to speak in complete sentences GI Palpation: soft and tender Assessment & Plan Assessment and plan (1) Colon cancer screening: Status: Acute Assessment & Plan narrative: Presents today for screening colonoscopy I discussed the risks benefits and alternatives including but not limited to perforation of the colon and an incomplete exam she fully understands these risks and would like to proceed.
--- NOTE | 2023-02-05 08:28 | P.OP.COLON_ITS ---
Operative Date/Time/Diagnoses Date of procedure: 02/05/23 Pre-op diagnosis: Colon cancer screening Post-op diagnosis: same Procedure & Clinicians Study performed: Colonoscopy and biopsy Same procedure as scheduled: Yes Indications: Colon cancer screening average risk Surgeon: Kayla Ortega Procedure Notes Procedure in detail: Patient was taken to the endoscopy suite and placed in the left lateral decubitus position. A time-out was performed. With the help of a nesthesiologist conscious sedation was induced and maintained and monitored throughout the case. A digital rectal exam was performed. The prostate was smooth and there were no masses or strictures. The colonoscope was then introduced into the anal canal and advanced through to the cecum. The appendiceal orifice was photographed. The scope was then withdrawn for a total withdrawal time of 17 minutes. Upon withdrawal the colon was very clean and the prep was excellent. Social Circle bowel prep score of 3. There were a few very small diverticula seen in the sigmoid colon which were photographed. And 1 very small polyp also in the sigmoid. This polyp was removed with the biopsy forceps. Some photographs were obtained of this as well. The scope was then retroflexed and a photograph obtained of hemorrhoidal piles which were normal. Patient tolerated the procedure well and went in good condition to postoperative care unit. Findings: polyp(s) Specimen(s): other (1. Small sigmoid colon polyp) Post-procedure Plan for aftercare: 7-10 years depending on pathology Disposition: PACU
[2023-02-05 08:35] VITALS: BP 82/51; PULSE 74; RESP 18; TEMP 36.1; O2SAT 98
[2023-02-05 08:38] VITALS: BP 81/53; PULSE 68; RESP 12; O2SAT 96
[2023-02-05 08:43] VITALS: BP 85/54; PULSE 60; RESP 16; O2SAT 96
[2023-02-05 08:49] VITALS: BP 102/72; PULSE 63; RESP 97; TEMP 36.2
[2023-02-05 08:54] VITALS: BP 105/79; PULSE 52; RESP 16; TEMP 36.2; O2SAT 97
== END 2023-02-05 09:05 | disposition home or self-care (01) ==
PROVIDERS: PCP Family Medicine; Referring Provider Surgery; Visit Provider Surgery
PROC: 0DJD8ZZ Inspection of Lower Intestinal Tract, Via Natural or Artificial Opening Endoscopic (ICD-10-PCS; CPT 45378; principal; 2023-02-05 07:45)
DX: Z12.11 Encounter for screening for malignant neoplasm of colon (principal)
CPT/HCPCS: 45380; J2704

== ENCOUNTER → 2023-05-26 09:38 | Outpatient (CLI) | payer OTHER, SELFPAY ==
[2023-05-26 11:05] LABS: Add Manual Diff / Slide Review NO; Basophils Absolute Auto 0 /uL (0-100); Basophils Percent Auto 0.5 % (0-2); Eosinophils Absolute Auto 300 /uL (0-450); Eosinophils Percent Auto 4.8 % (2-4); Hematocrit 43.1 % (41-53); Hemoglobin 14.8 g/dL (13.5-17.5); Lymphocytes Absolute Auto 1900 /uL (1100-4500); Lymphocytes Percent Auto 30.6 % (25-40); Mean Corpuscular HGB Conc 34.4 % (30-36); Mean Corpuscular Hemoglobin 29.3 PG (26-34); Mean Corpuscular Volume 85.2 fL (80-100); Monocytes Absolute Auto 400 /uL (0-900); Monocytes Percent Auto 6.6 % (3-14); Neutrophils Absolute Auto 3500 /uL (1500-7000); Neutrophils Percent Auto 57.5 % (50-75); Platelet Count 184 X10^3/uL (150-400); Red Blood Cell Count 5.06 X10^6/uL (4.5-5.9); Red Cell Distribution Width 12.9 % (11.6-14.8); White Blood Cell Count 6.1 X10^3/uL (4.5-11.0)
[2023-05-26 11:18] LABS: Alanine Aminotransferase 31 IU/L (<50); Albumin 4.4 g/dL (3.5-5.0); Albumin Globulin Ratio 1.4 (1.0-2.8); Alkaline Phosphatase 65 U/L (38-126); Aspartate Aminotransferase 28 IU/L (17-59); BUN Creatinine Ratio 11.6 (6-22); Bilirubin Total 0.5 mg/dL (0.2-1.3); Blood Urea Nitrogen 11 mg/dL (9-20); Calcium 9.3 mg/dL (8.4-10.2); Carbon Dioxide 22 mmol/L (22-32); Chloride 106 mmol/L (98-107); Cholesterol 197 mg/dL (140-199); Estimated Glomerular Filt Rate > 60 mL/min (>60); Globulin 3.2 g/dL (1.7-4.1); Glucose 106 mg/dL (70-100); HDL Cholesterol 54 mg/dL (40-60); HEMOLYSIS < 15 (0-50); LDL Cholesterol Calculated 116 mg/dL (<100); Potassium 4.6 mmol/L (3.4-5.1); Sodium 138 mmol/L (137-145); Total Protein 7.6 g/dL (6.3-8.2); Triglycerides 133 mg/dL (35-150)
== END ==
PROVIDERS: PCP Family Medicine; Referring Provider Family Medicine; Visit Provider Family Medicine
DX: E78.5 Hyperlipidemia, unspecified (principal)
CPT/HCPCS: 36415; 80053; 80061; 85025